=== PATIENT | female | born 1950 | race Caucasian/White ===

== ENCOUNTER 2021-06-03 06:24 | Day surgery (SDC) | payer MEDICARE, OTHER, SELFPAY ==
[2021-06-03] VITALS (7 sets, daily range): BP systolic 111–134; BP diastolic 61–77; PULSE 57–78; RESP 18; TEMP 36.1–36.6; O2SAT 98–100; BMI 26.3
[2021-06-03] MEDS: Lactated Ringers 1,000 ML 15 ML IV (07:05)
--- NOTE | 2021-06-03 07:08 | HP.PCM_ITS ---
HPI - General HPI Narrative DEWAYNE GÓMEZ, is a 71 F who presents who has a personal history of colon polyps that dictates back to approximately 2006. Her most recent colonoscopy was 9 years ago. She denies bright red blood per rectum or melena. Some abdominal cramping but she thinks may be associated with the bowel prep. She otherwise is in good health. She has not had COVID-19. He has been vaccinated. [facility] Medical History (Updated 06/03/21 @ 07:[address] Dipak Giron MD) Alcohol use Cancer High cholesterol History of stress test Non-smoker Post-menopausal Thyroid disease Wears glasses Home Medications levothyroxine [Synthroid] 75 mcg PO DAILY 05/30/21 [History Last Taken 06/03/21 05:15] liothyronine 5 mcg PO BID 05/30/21 [History Last Taken 06/03/21 05:15] simvastatin 20 mg PO DAILY 05/30/21 [History Last Taken Unknown] Allergy/AdvReac Type Severity Reaction Status Date / Time erythromycin base Allergy Unknown PT UNSURE Verified 06/03/21 06:52 OF REACTION rofecoxib [From Vioxx] Allergy Unknown PT UNSURE Verified 06/03/21 06:52 OF REACTION adhesive AdvReac Intermediate Rash Verified 06/03/21 06:52 Surgical History (Updated 05/30/21 @ 15:10 by Valeria Henderson) Hx of colonoscopy Hx of hysterectomy Social History Smoking Status: Never smoker ROS Constitutional Constitutional: Reports systems reviewed and no addt'l complaints, except as documented Cardiovascular Cardiovascular: Denies chest pain Respiratory/Chest Respiratory/Chest: Denies shortness of breath at rest Gastrointestinal Gastrointestinal: Denies abdominal pain, change in bowel habits, hematochezia or melena Vital Signs Vital Signs Vital Signs: 06/03/21 06:55 06/03/21 06:56 Temperature 97.2 F L Temperature Source Temporal Pulse Rate 71 Respiratory Rate 18 Respiratory Pattern Normal Blood Pressure 134/73 H Blood Pressure Mean 93 Blood Pressure Source Monitor Blood Pressure Position Semi-Fowlers Blood Pressure Location Left Arm Pulse Ox 100 Oxygen Delivery Method Room Air Weight Weight: 158 lb 4.8 oz Body Mass Index (BMI) 26.3 Physical Exam Const alert, oriented x3 and no apparent distress General Appearance: cooperative and comfortable Eyes General Eye: normal appearance of both eyes Neck General: normal visual inspection Chest inspection of chest normal Resp Effort and Inspection: able to speak in complete sentences and symmetric chest movement Auscultation: clear to auscultation bilaterally Cardio regular rate and regular rhythm GI soft to palpation, non-tender and non-distended Extremity no calf tenderness Neuro oriented x3 Psych thought process normal Assessment & Plan Assessment/Plan (1) Personal history of colonic polyps: PLAN: I recommended the patient a colonoscopy with possible biopsy or polypectomy as indicated. She is aware of the technique, benefit, risk, alternatives. She has had an opportunity to ask and have questions answered. She presents via open access today. We will proceed as noted. Dipak Giron M.D., F.A.C.S.
--- NOTE | 2021-06-03 08:07 | OP.COLON_ITS ---
Patient Name: Landy Geiger Procedure Date: 06/03/2021 7:35 AM Date of : 1950 Age: 71 Procedure: Colonoscopy Indications: High risk colon cancer surveillance: Personal history of colonic polyps Providers: Dipak Giron MD Medicines: See the Anesthesia note for documentation of the administered medications Patient Profile: Last Colonoscopy: 2012. Complications: No immediate complications. Procedure: Pre-Anesthesia Assessment: - Prior to the procedure, a History and Physical was performed, and patient medications and allergies were reviewed. The patient's tolerance of previous anesthesia was also reviewed. The risks and benefits of the procedure and the sedation options and risks were discussed with the patient. All questions were answered, and informed consent was obtained. Prior Anticoagulants: The patient has taken no previous anticoagulant or antiplatelet agents. ASA Grade Assessment: II - A patient with mild systemic disease. After reviewing the risks and benefits, the patient was deemed in satisfactory condition to undergo the procedure. After I obtained informed consent, the scope was passed under direct vision. Throughout the procedure, the patient's blood pressure, pulse, and oxygen saturations were monitored continuously. The pediatric colonoscope was introduced through the anus and advanced to the cecum, identified by appendiceal orifice and ileocecal valve. The colonoscopy was performed without difficulty. The patient tolerated the procedure well. The quality of the bowel preparation was good. The ileocecal valve and the appendiceal orifice were photographed. Scope In: 7:48:19 AM Scope Withdrawal Time 0 hours 6 minutes 36 seconds Scope Out: 8:03:30 AM Total Procedure Duration Time 0 hours 15 minutes 11 seconds Findings: Hemorrhoids were found on perianal exam. The colon (entire examined portion) appeared normal. Impression: - Hemorrhoids found on perianal exam. - The entire examined colon is normal. - No specimens collected. Recommendation: - Discharge patient to home. - Resume previous diet. - Continue present medications. - Repeat colonoscopy in 10 years for screening purposes. Procedure Code(s): --- Professional --- 98294, Colonoscopy, flexible; diagnostic, including collection of specimen(s) by brushing or washing, when performed (separate procedure) Diagnosis Code(s): --- Professional --- Z86.010, Personal history of colonic polyps K64.9, Unspecified hemorrhoids CPT copyright 2017 [employer]. All rights reserved. The codes documented in this report are preliminary and upon engine repairer production review may be revised to meet current compliance requirements. Dipak Giron MD 06/03/2021 8:07:24 AM This report has been signed electronically. Number of Addenda: 0 Note Initiated On: 06/03/2021 7:35 AM
--- NOTE | 2021-06-03 08:08 | OP.CCLET_ITS ---
06/03/2021 Sascha Riggs Re : Colonoscopy procedure for Landy Geiger Dear Keely This procedure was performed on Thursday, June 03, 2021. My impressions and recommendations are as follows: Impressions : - Hemorrhoids found on perianal exam. - The entire examined colon is normal. - No specimens collected. Recommendations : - Discharge patient to home. - Resume previous diet. - Continue present medications. - Repeat colonoscopy in 10 years for screening purposes. My findings are described in the full procedure note, which is enclosed. If I can be of further assistance, please feel free to contact me at Doctor phone number(s): Work: . Sincerely, Dipak Giron MD 06/03/2021 8:07:24 AM This report has been signed electronically.
== END 2021-06-03 23:59 | disposition home or self-care (01) ==
LOC: EN 06:31 → AC 06:33
PROVIDERS: PCP Family Medicine; Referring Provider Family Medicine; Visit Provider Surgery
PROC: 0DJD8ZZ Inspection of Lower Intestinal Tract, Via Natural or Artificial Opening Endoscopic (ICD-10-PCS; CPT 45378; principal; 2021-06-03 07:25)
DX: Z12.11 Encounter for screening for malignant neoplasm of colon (principal); K64.9 Unspecified hemorrhoids; E78.00 Pure hypercholesterolemia, unspecified; E07.9 Disorder of thyroid, unspecified; Z79.899 Other long term (current) drug therapy; Z86.010 Personal history of colon polyps
CPT/HCPCS: 45378; J7120; J2405